=== PATIENT | male | born 1975 | race African-American/Black ===

== ENCOUNTER 2018-09-17 09:17 | Day surgery (SDC) | payer OTHER ==
[~2018-09-17 09:17] MED LIST: Buffered Lidocaine 1% SYRIN* 1 ML/SYRINGE INTRADERM ONE; Lactated Ringers 1000 ML Bag* 1,000 ML IV SCH
[2018-09-17] MEDS ORDERED: ceFAZolin 2 GM PREMIX in ORs 2 GM/50 ML BAG ONE (09:40)
[2018-09-17] MEDS ORDERED: fentaNYL* 50 MCG/ML 2 ML VIAL (100 MCG VIAL) ONE (10:06)
[2018-09-17] MEDS ORDERED: Midazolam* 1 MG/ML 2 ML VIAL (2 MG) ONE (10:06)
[2018-09-17] MEDS ORDERED: Bupivacaine 0.25% SDV* 30 ML ONE (10:13)
[2018-09-17] MEDS ORDERED: Propofol* 10 MG/ML 20 ML BTL ONE (10:27)
[2018-09-17 11:45] VITALS: BP 107/59
--- NOTE | 2018-09-17 13:48 | OP ---
DATE OF OPERATION: 09/17/18 - [facility] DATE OF : 75 SURGEON: Mark Hicks MD. SCREEDMAN/LABORER: SHERIF Montes. ANESTHESIOLOGIST: Dr. Jones. ANESTHESIA: Local MAC. PRE-OP DIAGNOSES: 1. Right carpal tunnel syndrome. 2. 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 POST-OP DIAGNOSES: 1. Right carpal tunnel syndrome. 2. 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 OPERATIVE PROCEDURE: 1. Right open carpal tunnel release. 2. Right median nerve decompression in the proximal forearm with release of the lacertus fibrosus. INDICATIONS: Bhanu has signs and symptoms consistent with median nerve compression. After he has been exercising for a period of time, the hand will get really cramped up and numb and difficult to use. He has to stop exercising. He has clinical signs concerning for median nerve compression in the proximal forearm in addition to the compressions through the carpal tunnel. We talked about risks and benefits and he wanted to proceed. ESTIMATED BLOOD LOSS: 2 mL. COMPLICATIONS: None. FINDINGS: See above and below. DESCRIPTION OF PROCEDURE: Bhanu was seen in the preoperative holding area. The correct site, side, and procedures were identified. We came back to the operating room, where the arm was prepped and draped in the usual fashion. A time-out was performed. The arm was exsanguinated with the Esmarch and the tourniquet was inflated to 250 mmHg. I first went ahead and made a 2 to 3 cm incision in the proximal palm. Dissection was carried down through the subcutaneous tissue and palmar fascia. The transverse carpal ligament was released just off the radial aspect of the hook of the hamate. The release was completed distally and then I came proximally, and I released the subcutaneous tissue and fascia. I placed a Rakel retractor and then I released the remainder of the proximal aspect of the transverse carpal ligament and the distal antebrachial fascia to a level several centimeters proximal to the wrist flexion crease. I confirmed the decompression proximally and distally. Everything was looking very good. We irrigated out the wound and the skin was closed with 4-0 nylon suture. I then made a 3 cm transverse incision over the lacertus fibrosus in the proximal forearm just distal to the antecubital flexion crease. The dissection was carried down and full-thickness flaps were raised off of the lacertus fibrosus. I placed retractors and then I began by identifying the proximal aspect of the lacertus fibrosus. The tenotomy scissors were used to release the entirety of the lacertus fibrosus. The decompression was carried down distally another several centimeters and then proximally it was carried out as well with the tenotomy scissors. I then confirmed there was absolutely no more compression on the nerve and everything was looking good, so we irrigated out the wound. The skin was closed with 4-0 nylon suture. The wounds were dressed with soft dressings and he was taken to the recovery room in stable condition. [id number]/[facility] #: [id number] [place]
== END 2018-09-17 12:15 | disposition home or self-care (01) ==
LOC: OREAST 09:17
PROVIDERS: ATTEND Orthopaedic Surgery Hand Surgery
DX: G56.01 Carpal tunnel syndrome, right upper limb (principal); G56.11 Other lesions of median nerve, right upper limb; Z72.0 Tobacco use; F19.11 Other psychoactive substance abuse, in remission
CPT/HCPCS: J0690; J2250; J2704; J3010; J3490